=== PATIENT | female | born 1990 | race Caucasian/White ===

== ENCOUNTER 2022-08-20 05:39 | Inpatient (IN) ==
[2022-08-20] MEDS ORDERED: miSOPROStoL 200 MCG TABLET RECTAL PRN (05:46)
[2022-08-20] MEDS ORDERED: CARBOPROST TROMETHAMINE 250 MCG/ML AMP IM PRN (05:46)
[2022-08-20] MEDS ORDERED: METHYLERGONOVINE 0.2 MG/1 ML AMP IM PRN (05:46)
[2022-08-20] MEDS ORDERED: TRANEXAMIC ACID 1,000 MG in SODIUM CHLORIDE 0.9% 100 ML IV PRN (05:46)
[2022-08-20] MEDS ORDERED: OXYTOCIN/LR 20 UNIT/1,000 ML BAG IV ONE ×3 (05:46→11:25)
[2022-08-20] MEDS ORDERED: ONDANSETRON 4 MG/2 ML VIAL IV PRN ×2 (05:46→11:25)
[2022-08-20] MEDS ORDERED: LACTATED RINGERS 1,000 ML IV SCH (06:00)
[2022-08-20 06:20] LABS: Basophils % 0.3 % (0.0-0.8); Eosinophils # 0.1 10*3/uL (0.0-0.87); Eosinophils % 1.4 % (0.00-10.9); Hematocrit 31.7 VOL% (35.7-47.0); Hemoglobin 10.3 GM/DL (12.0-16.0); Immature Granulocytes % 0.5 %; Immature Granulocytes Absolute 0.03 #; Lymphocytes # 1.6 10*3/uL (1.4-4.0); Lymphocytes % 28.2 % (21.3-54.2); Mean Corpuscular HGB Conc 32.5 GM/DL (32-36); Mean Corpuscular Volume 78.9 FL (87-102); Mean Platelet Volume 9.7 FL (9.6-12.0); Monocytes # 0.6 10*3/uL (0.11-0.8); Monocytes % 10.8 % (1.7-12.7); Neutrophils % 58.8 % (38.7-73.9); Platelet Count 394 T/CUMM (130-400); Red Blood Count 4.02 MC/CUMM (3.8-5.5); White Blood Count 5.75 T/CUMM (4-12)
[2022-08-20 06:45] LABS: Alanine Aminotransferase 17 U/L (13-56); Albumin 2.3 G/DL (3.4-5.0); Alkaline Phosphatase 120 U/L (45-117); Aspartate Amino Transferase 15 U/L (0-37); Bilirubin,Total < 0.39 MG/DL (0.20-1.00); Blood Urea Nitrogen 6 MG/DL (7-18); Calcium 8.8 MG/DL (8.5-10.1); Carbon Dioxide 23 MMOL/L (21-32); Chloride 109 MMOL/L (98-107); Glucose 92 MG/DL (74-106); Osmolality,Calculated 274.5 MOS/KG (273-304); Potassium 3.7 MMOL/L (3.5-5.1); Sodium 139 MMOL/L (136-145); Total Protein 6.5 G/DL (6.4-8.2)
[2022-08-20] MEDS ORDERED: SODIUM CHLORIDE 0.9% 0 ML IV ONE (07:22)
[2022-08-20] MEDS ORDERED: miSOPROStoL 200 MCG TABLET ONE (07:22)
[2022-08-20] MEDS ORDERED: TRANEXAMIC ACID 1,000 MG/10 ML VIAL ONE (07:22)
[2022-08-20] MEDS ORDERED: METHYLERGONOVINE 0.2 MG/1 ML AMP ONE (07:22)
[2022-08-20] MEDS ORDERED: CARBOPROST TROMETHAMINE 250 MCG/ML AMP IM ONE (07:23)
[2022-08-20] MEDS ORDERED: FAMOTIDINE 20 MG/2 ML VIAL IV ONE (08:00)
[2022-08-20] MEDS ORDERED: CITRIC ACID/SODIUM CITRATE 30 ML UDCUP PO ONE (08:00)
[2022-08-20] MEDS ORDERED: ceFAZolin 2,000 MG/50 ML DUPLEX IV ONE (08:00)
[2022-08-20] MEDS ORDERED: ONDANSETRON 4 MG/2 ML VIAL ONE (08:15)
[2022-08-20] MEDS ORDERED: PHENYLEPHRINE 1 MG/10 ML SYRINGE IV ONE (08:15)
[2022-08-20] MEDS ORDERED: buprenorphine HCL 0.3 MG/ML VIAL ONE (08:16)
[2022-08-20] MEDS ORDERED: ACETAMINOPHEN INJ 1,000 MG/100 ML VIAL IV ONE (08:16)
[2022-08-20] MEDS ORDERED: KETOROLAC 30 MG/1 ML VIAL ONE (08:16)
[2022-08-20 09:09] LABS: Cord Arterial Blood HCO3 22.6 MMOL/L
[2022-08-20] MEDS ORDERED: LIDOCAINE 2% 5 ML VIAL ONE (09:09)
[2022-08-20] MEDS ORDERED: propofoL 200 MG/20 ML VIAL IV ONE (09:09)
[2022-08-20 09:13] LABS: Cord Venous Blood HCO3 22.9 MMOL/L; Cord Venous Blood PCO2 47.1 MMHG; Cord Venous Blood PO2 20.4
[2022-08-20 11:25] LABS: Glucose,Urine (UA) Negative (Negative); Mucus,Urine Moderate /LPF (Occasional); Protein,Urine 30 mg/dL (Negative); RBC,Urine 2 /HPF (0-4); Squamous Epithelial Cell,Urine Occasional /HPF (0-10); Urine Appearance Clear (Clear); Urine Color Yellow (Yellow); Urine Specific Gravity 1.015 (1.001-1.035)
[2022-08-20] MEDS ORDERED: LANOLIN 50% CREAM 0.3 OZ TUBE TOP PRN (11:25)
[2022-08-20] MEDS ORDERED: MEASLES/MUMPS/RUBELLA VACCINE 0.5 ML VIAL SUBCUT ONE (11:25)
[2022-08-20] MEDS ORDERED: BISACODYL 10 MG SUPP RECTAL PRN (11:25)
[2022-08-20] MEDS ORDERED: BENZOCAINE 20%/MENTHOL 0.5% SPRAY 56 GM CAN TOP PRN (11:25)
[2022-08-20] MEDS ORDERED: DIPH/TET/ACEL PERT BOOSTER VACCINE 0.5 ML VIAL IM ONE (11:25)
[2022-08-20] MEDS ORDERED: ACETAMINOPHEN 325 MG TABLET PO PRN (11:25)
[2022-08-20] MEDS ORDERED: WITCH HAZEL PADS 100/JAR TOP PRN (11:25)
[2022-08-20] MEDS ORDERED: RHO(D) IMMUNE GLOBULIN 300 MCG SYRINGE IM ONE (11:25)
[2022-08-20] MEDS ORDERED: HYDROCORTISONE 2.5% RECTAL CREAM 30 GM TUBE TOP PRN (11:25)
[2022-08-20 11:26] LABS: Bilirubin,Urine Negative (Negative); Blood, Urine Negative (Negative); Ketones,Urine Trace mg/dL (Negative); Nitrite,Urine Negative (Negative); Urine Urobilinogen 0.2 eU/dL (<2.0)
[2022-08-20] MEDS: KETOROLAC 30 MG/1 ML VIAL IV SCH ×2 (14:23→21:30)
[2022-08-20] MEDS: ACETAMINOPHEN 500 MG TABLET PO SCH ×2 (14:25→21:29)
[2022-08-20] MEDS: SIMETHICONE CHEW 80 MG TABLET PO PRN (14:53)
[2022-08-20] MEDS: oxyCODONE/ACETAMINOPHEN 5-325 MG TABLET PO PRN (19:53)
[2022-08-20] MEDS: DOCUSATE SODIUM 100 MG CAPSULE PO SCH (21:29)
[2022-08-21] MEDS: oxyCODONE/ACETAMINOPHEN 5-325 MG TABLET PO PRN ×4 (02:03→19:53)
[2022-08-21] MEDS: KETOROLAC 30 MG/1 ML VIAL IV SCH (03:15)
[2022-08-21 05:15] LABS: Basophils % 0.2 % (0.0-0.8); Eosinophils # 0.2 10*3/uL (0.0-0.87); Eosinophils % 2.2 % (0.00-10.9); Hematocrit 27.5 VOL% (35.7-47.0); Hemoglobin 8.7 GM/DL (12.0-16.0); Immature Granulocytes % 0.4 %; Immature Granulocytes Absolute 0.04 #; Lymphocytes # 1.7 10*3/uL (1.4-4.0); Lymphocytes % 15.8 % (21.3-54.2); Mean Corpuscular HGB Conc 31.6 GM/DL (32-36); Mean Corpuscular Volume 81.1 FL (87-102); Mean Platelet Volume 9.8 FL (9.6-12.0); Monocytes # 0.8 10*3/uL (0.11-0.8); Monocytes % 7.6 % (1.7-12.7); Neutrophils % 73.8 % (38.7-73.9); Platelet Count 322 T/CUMM (130-400); Red Blood Count 3.39 MC/CUMM (3.8-5.5); Red Cell Distribution Width 13.2 % (9.3-17.3); White Blood Count 10.48 T/CUMM (4-12)
[2022-08-21] MEDS: ACETAMINOPHEN 500 MG TABLET PO SCH (05:31)
[2022-08-21] MEDS: IBUPROFEN 800 MG TABLET PO PRN ×3 (05:36→22:37)
[2022-08-21] MEDS: DOCUSATE SODIUM 100 MG CAPSULE PO SCH ×3 (08:04→23:02)
[2022-08-21] MEDS: SIMETHICONE CHEW 80 MG TABLET PO PRN ×2 (09:02→19:52)
[2022-08-21] MEDS: FERROUS SULFATE 325 MG TABLET PO SCH ×3 (09:02→23:02)
[2022-08-21] MEDS: MAGNESIUM HYDROXIDE SUSP 30 ML UDCUP PO PRN ×2 (09:02→19:51)
[2022-08-22] MEDS: oxyCODONE/ACETAMINOPHEN 5-325 MG TABLET PO PRN ×2 (01:33→07:53)
[2022-08-22] MEDS: IBUPROFEN 800 MG TABLET PO PRN (04:27)
[2022-08-22 07:25] VITALS: BP 93/51
[2022-08-22] MEDS: FERROUS SULFATE 325 MG TABLET PO SCH ×2 (07:54→08:29)
[2022-08-22] MEDS: MAGNESIUM HYDROXIDE SUSP 30 ML UDCUP PO PRN (07:54)
[2022-08-22] MEDS: SIMETHICONE CHEW 80 MG TABLET PO PRN (07:54)
[2022-08-22] MEDS: DOCUSATE SODIUM 100 MG CAPSULE PO SCH ×2 (07:54→08:28)
== END 2022-08-22 12:55 | disposition home or self-care (01) | DRG 788 ==
LOC: N.LD 05:39 → N.OB 11:35
PROVIDERS: ADMIT Specialist; ATTEND Specialist
PROC: LDCSECT (ICD-10-PCS; 2022-08-20 08:30)